=== PATIENT | female | born 1965 | race Caucasian/White ===

== ENCOUNTER 2019-05-12 18:31 | Emergency (ER) | payer OTHER ==
[~2019-05-12] VITALS: Ht 154.9 cm; Wt 84.4 kg
[2019-05-12 18:40] VITALS: BP 149/84
[2019-05-12 19:22] LABS: Albumin 3.7 g/dL (3.4-5.0); Anion Gap 10 (5-15); Blood Urea Nitrogen 9 mg/dL (7-18); Calcium 8.8 mg/dL (8.5-10.1); Carbon Dioxide 23 mmol/L (21-32); Chloride 110 mmol/L (98-107); Glucose 112 mg/dL (74-106); Potassium 3.5 mmol/L (3.5-5.1); Sodium 143 mmol/L (136-145)
[2019-05-12 19:24] LABS: BUN/Creatinine Ratio 8.6; GFR African American 70 mL/min; GFR Non-African American 58 mL/min
[2019-05-12 19:29] LABS: Alanine Aminotransferase 17 U/L (13-56); Alkaline Phosphatase 87 U/L (45-117); Aspartate Aminotransferase 15 U/L (15-37); Total Protein 8.2 g/dL (6.4-8.2)
[2019-05-12] MEDS ORDERED: ASPirin 81 mg TAB PO ONE (19:30)
[2019-05-12 19:59] LABS: Hematocrit 43.7 % (36.0-46.0); Hemoglobin 14.2 g/dL (12.2-16.2); Mean Corpuscular Hemoglobin 29.3 pg (28.0-32.0); Mean Corpuscular Hgb Conc. 32.5 g/dL (32.0-36.0); Mean Corpuscular Volume 90.2 fL (80.0-100.0); Platelet Count (auto) 342 10^3/uL (140-450); Red Blood Cells 4.84 10^6/uL (4.0-5.20); Red Cell Distribution Width 13.5 % (11.8-14.3); White Blood Cell 15.8 10^3/uL (4.4-10.8)
[2019-05-12 20:12] LABS: Band Neutrophils % (manual) 0; Basophils % (manual) 0 (0.0-2.0); Blast Cells 0; Metamyelocytes % 0; Myelocytes % 0; Promyelocytes % 0; Reactive Lymphocytes 0
[2019-05-12 22:59] LABS: Eosinophils % (manual) 2 (0-7); Lymphocytes % (manual) 32 (10.0-50.0); Monocytes % (manual) 7 (0-12)
== END 2019-05-12 21:15 | disposition left against medical advice (07) ==
LOC: ER 18:37
DX: I24.9 Acute ischemic heart disease, unspecified (principal); Z90.49 Acquired absence of other specified parts of digestive tract; Z90.89 Acquired absence of other organs
CPT/HCPCS: 36415; 71046; 80053; 83735; 84484; 85007; 85027; 93005